=== PATIENT | female | born 1980 | race Caucasian/White ===

== ENCOUNTER → 2020-06-07 | Outpatient (CLI) | payer OTHER ==
[~2020-06-07] MED LIST: GAS-X125 MG PO; NATURAL FLAX1000 MG; NATURAL IRON65 MG PO; PANTOPRAZOLE SO40 MG PO; [UNRECOGNIZED DRUG - OTHER]
[2020-06-07 12:11] LABS: EOS # 0.2 (0.04-0.40); EOS % 1.7 % (1.0-5.0); HEMATOCRIT 34.4 % (37.0-47.0); HEMOGLOBIN 10.3 g/dL (12.5-16.0); LYMPH# 1.9 (1.50-4.00); MEAN CELL VOLUME 78 fl (78-100); MEAN CORPUSCULAR HGB CONC 30 g/dL (33-37); MEAN PLATELET VOLUME 9.5 fl (7.4-10.4); MONO # 0.5 (0.20-0.80); NEU # 7.3 (1.40-6.50); PLATELET COUNT 335 K/mm3 (130-400); RED BLOOD COUNT 4.39 M/mm3 (4.10-5.30); RED CELL DISTRIBUTION WIDTH 16.1 % (11.5-14.5); WHITE BLOOD COUNT 9.9 K/mm3 (4.8-10.8)
[2020-06-07 12:18] LABS: ALBUMIN 3.9 g/dL (3.5-5.0); POTASSIUM 3.9 mmol/L (3.5-5.1)
[2020-06-07 12:19] LABS: CALCIUM 8.9 mg/dL (8.3-10.5)
[2020-06-07 12:20] LABS: MEAN CORPUSCULAR HEMOGLOBIN 24 pg (27-31)
[2020-06-07 12:21] LABS: TOTAL PROTEIN 7.1 g/dL (6.4-8.3)
[2020-06-07 12:23] LABS: TOTAL BILIRUBIN 0.9 mg/dL (0.2-1.2)
== END ==
LOC: LAB 11:52
PROVIDERS: Physician Assistant
DX: Z76.89 Persons encountering health services in other specified circumstances (principal); E78.5 Hyperlipidemia, unspecified; K58.9 Irritable bowel syndrome, unspecified; K90.9 Intestinal malabsorption, unspecified; K90.0 Celiac disease; R73.9 Hyperglycemia, unspecified; Z83.49 Family history of other endocrine, nutritional and metabolic diseases

== ENCOUNTER 2020-06-23 19:25 | Emergency (ER) | payer OTHER ==
[2020-06-23 19:44] VITALS: BP 159/87
[2020-06-23] MEDS ORDERED: PANTOPRAZOLE SO40 MG PO (19:52)
[2020-06-23] MEDS ORDERED: NATURAL FLAX1000 MG (19:52)
[2020-06-23] MEDS ORDERED: NATURAL IRON65 MG PO (19:52)
[2020-06-23] MEDS ORDERED: GAS-X125 MG PO (19:53)
[2020-06-23 20:50] LABS: D-DIMER 0.27 mg/L FEU (0.15-0.50)
[2020-06-23] MEDS ORDERED: [UNRECOGNIZED DRUG - OTHER] (21:26)
== END 2020-06-23 21:42 | disposition home or self-care (01) ==
LOC: ED 19:25
PROVIDERS: Family Medicine
DX: M79.662 Pain in left lower leg (principal); F41.8 Other specified anxiety disorders; K21.9 Gastro-esophageal reflux disease without esophagitis
CPT/HCPCS: J1650

== ENCOUNTER → 2020-06-24 | Outpatient (CLI) | payer OTHER ==
[2020-06-23 19:44] VITALS: BP 159/87
== END ==
LOC: VAS 14:24
DX: M79.89 Other specified soft tissue disorders (principal)

== ENCOUNTER → 2020-11-22 | Outpatient (CLI) | payer OTHER ==
[2020-11-22 09:35] LABS: EOS # 0.1 (0.04-0.40); HEMATOCRIT 38.7 % (37.0-47.0); HEMOGLOBIN 11.6 g/dL (12.5-16.0); LYMPH# 1.5 (1.50-4.00); MEAN CELL VOLUME 83 fl (78-100); MEAN CORPUSCULAR HEMOGLOBIN 25 pg (27-31); MEAN CORPUSCULAR HGB CONC 30 g/dL (33-37); MEAN PLATELET VOLUME 9.5 fl (7.4-10.4); MONO # 0.5 (0.20-0.80); NEU # 7.5 (1.40-6.50); PLATELET COUNT 328 K/mm3 (130-400); RED BLOOD COUNT 4.65 M/mm3 (4.10-5.30); RED CELL DISTRIBUTION WIDTH 16.3 % (11.5-14.5); WHITE BLOOD COUNT 9.7 K/mm3 (4.8-10.8)
[2020-11-22 09:48] LABS: POTASSIUM 4.1 mmol/L (3.5-5.1)
[2020-11-22 09:50] LABS: TOTAL PROTEIN 7.1 g/dL (6.4-8.3)
[2020-11-22 09:52] LABS: TOTAL BILIRUBIN 0.9 mg/dL (0.2-1.2)
[2020-11-22 21:41] LABS: FOLLICLE STIMULATING HORMONE 19.7 mIU/mL (()); LUTENIZING HORMONE 66.9 mIU/mL (()); PROGESTERONE 0.5 ng/mL (()); PROLACTIN AMS 15.7 ng/mL (5.2-26.5)
== END ==
LOC: LAB 09:14
PROVIDERS: Physician Assistant
DX: Z00.00 Encounter for general adult medical examination without abnormal findings (principal); R63.5 Abnormal weight gain

== ENCOUNTER → 2021-11-25 | Outpatient (CLI) | payer OTHER ==
[2021-11-25 17:09] LABS: BASO # 0.05 K/mm3 (0.02-0.10); EOS # 0.19 K/mm3 (0.04-0.40); EOS % 1.4 % (1.0-5.0); HEMATOCRIT 39.1 % (37.0-47.0); HEMOGLOBIN 12.2 g/dL (12.5-16.0); LYMPH# 2.38 K/mm3 (1.50-4.00); MEAN CELL VOLUME 83 fl (78-100); MEAN CORPUSCULAR HEMOGLOBIN 26 pg (27-31); MEAN CORPUSCULAR HGB CONC 31 g/dL (33-37); MEAN PLATELET VOLUME 9.3 fl (7.4-10.4); MONO # 0.68 K/mm3 (0.20-0.80); NEU # 9.92 K/mm3 (1.40-6.50); PLATELET COUNT 328 K/mm3 (130-400); RED BLOOD COUNT 4.74 M/mm3 (4.10-5.30); RED CELL DISTRIBUTION WIDTH 15.1 % (11.5-14.5); WHITE BLOOD COUNT 13.3 K/mm3 (4.8-10.8)
[2021-11-25 17:22] LABS: SODIUM 140 mmol/L (136-145)
[2021-11-25 17:23] LABS: CALCIUM 9.5 mg/dL (8.3-10.5)
[2021-11-25 17:24] LABS: GLUCOSE 85 mg/dL (65-105); TOTAL PROTEIN 7.7 g/dL (6.4-8.3)
[2021-11-25 17:25] LABS: CARBON DIOXIDE 22 mmol/L (22-29)
[2021-11-25 17:26] LABS: TOTAL BILIRUBIN 0.8 mg/dL (0.2-1.2)
[2021-11-25 17:29] LABS: AST-SGOT 14 U/L (5-34)
[2021-11-25 17:31] LABS: ALT/SGPT 16 U/L (0-55); LIPASE 10 U/L (8-78)
[2021-11-25 17:39] LABS: TROPONIN-I < 0.030 ng/mL (<0.030)
[2021-11-25 18:33] LABS: URINE COLOR YELLOW
[2021-11-25 18:35] LABS: URINE APPEARANCE CLEAR; URINE BILIRUBIN NEGATIVE (NEGATIVE); URINE BLOOD NEGATIVE (NEGATIVE); URINE GLUCOSE NEGATIVE (NEGATIVE); URINE KETONE NEGATIVE (NEGATIVE); URINE LEUKOCYTE ESTERASE 1+ (NEGATIVE); URINE NITRATE NEGATIVE (NEGATIVE); URINE PROTEIN(semi-quant) 1+ (NEGATIVE); URINE UROBILINOGEN NORMAL (NORMAL)
[2021-11-25 18:36] LABS: URINE MUCUS PRESENT (NOT PRESENT)
== END ==
LOC: LAB 16:45 → RAD 16:45
PROVIDERS: Physician Assistant
DX: Z00.00 Encounter for general adult medical examination without abnormal findings (principal); Z13.220 Encounter for screening for lipoid disorders; Z13.29 Encounter for screening for other suspected endocrine disorder; K90.9 Intestinal malabsorption, unspecified; I45.10 Unspecified right bundle-branch block; R10.9 Unspecified abdominal pain

== ENCOUNTER → 2022-01-28 | Outpatient (CLI) | payer OTHER | LOC: RAD 16:11 | DX: M47.817 Spondylosis without myelopathy or radiculopathy, lumbosacral region (principal); M17.12 Unilateral primary osteoarthritis, left knee ==

== ENCOUNTER → 2022-04-16 | Outpatient (CLI) | payer OTHER | LOC: RAD 17:30 | DX: M47.816 Spondylosis without myelopathy or radiculopathy, lumbar region (principal); M50.30 Other cervical disc degeneration, unspecified cervical region; M48.02 Spinal stenosis, cervical region; M48.061 Spinal stenosis, lumbar region without neurogenic claudication; Z98.1 Arthrodesis status | CPT/HCPCS: A9575 ==

== ENCOUNTER → 2024-05-18 | Outpatient (CLI) | payer OTHER ==
[2024-05-18 14:23] LABS: BASO # 0.03 K/mm3 (0.02-0.10); EOS # 0.18 K/mm3 (0.04-0.40); EOS % 1.9 % (1.0-5.0); HEMATOCRIT 35.8 % (37.0-47.0); HEMOGLOBIN 10.9 g/dL (12.5-16.0); LYMPH# 2.03 K/mm3 (1.50-4.00); MEAN CELL VOLUME 78 fl (78-100); MEAN CORPUSCULAR HEMOGLOBIN 24 pg (27-31); MEAN CORPUSCULAR HGB CONC 30 g/dL (33-37); MEAN PLATELET VOLUME 9.1 fl (7.4-10.4); MONO # 0.46 K/mm3 (0.20-0.80); NEU # 6.52 K/mm3 (1.40-6.50); PLATELET COUNT 341 K/mm3 (130-400); RED BLOOD COUNT 4.57 M/mm3 (4.10-5.30); RED CELL DISTRIBUTION WIDTH 15.9 % (11.5-14.5); WHITE BLOOD COUNT 9.3 K/mm3 (4.8-10.8)
[2024-05-18 14:31] LABS: ALBUMIN 3.9 g/dL (3.5-5.0)
[2024-05-18 14:32] LABS: CALCIUM 9.4 mg/dL (8.3-10.5)
[2024-05-18 14:33] LABS: TOTAL PROTEIN 7.1 g/dL (6.4-8.3)
== END ==
LOC: LAB 14:05
PROVIDERS: Physician Assistant
DX: Z13.29 Encounter for screening for other suspected endocrine disorder (principal); Z13.220 Encounter for screening for lipoid disorders; Z13.1 Encounter for screening for diabetes mellitus; M25.561 Pain in right knee; D64.9 Anemia, unspecified; K90.9 Intestinal malabsorption, unspecified